=== PATIENT | female | born 1980 | race Caucasian/White ===

== ENCOUNTER 2019-02-04 22:01 | Emergency (ER) | payer SELFPAY ==
--- NOTE | 2019-02-04 22:27 | ED Physician Documentation ---
PD HPI ABD PAIN - Stated complaint Stated Complaint: ABD PX/VOM - Chief complaint Chief Complaint: Abd Pain - History obtained from History obtained from: Patient - History of Present Illness Timing - onset: Enter time (04:30), Today Timing - details: Gradual onset Pain level now: 4 Quality: Pain Location: RLQ Radiation: Other (no radiation) Worsened by: Moving, Other (vomiting) Associated symptoms: Nausea, Vomiting. No: Fever, Diarrhea, Constipation Similar symptoms before: Has not had sx before Recently seen: Not recently seen Review of Systems Constitutional: denies: Fever, Chills, Sweats Cardiac: reports: Reviewed and negative Respiratory: reports: Reviewed and negative GI: reports: Abdominal Pain, Nausea, Vomiting. denies: Constipation, Diarrhea : denies: Dysuria, Frequency PD PAST MEDICAL HISTORY - Past Medical History Past Medical History: Yes [employer]: Ovarian cysts - Past Surgical History Other past surgical history: patient had surgery for right ovarian cyst when she was late teens; she does not recall whether her appendix was also removed - Present Medications Home Medications: Ambulatory Orders Medication Instructions Recorded Confirmed No Known Home Medications 02/04/19 02/04/19 - Allergies Allergies/Adverse Reactions: Allergies Allergy/AdvReac Type Severity Reaction Status Date / Time ibuprofen Allergy Rash Verified 02/04/19 22:10 metoclopramide [From Reglan] AdvReac Mild Hallucinati Verified 02/04/19 22:11 ons Iodinated Contrast- Oral and AdvReac Itching Verified 02/05/19 00:13 IV Dye PD ED PE NORMAL - Vitals Vital signs reviewed: Yes - General General: Alert and oriented X 3, No acute distress (NAD at rest, but painful distress with movement, palpation of abdomen), Well developed/nourished - HEENT HEENT: Moist mucous membranes - Cardiac Cardiac: RRR, No murmur - Respiratory Respiratory: No respiratory distress, Clear bilaterally - Abdomen Abdomen: Soft, Non distended, Other (RLQ tenderness without rebound or guarding) - Back Back: No CVA TTP Results - Vitals Vitals: Vital Signs - 24 hr 02/04/19 02/04/19 02/04/19 22:11 23:03 23:40 Temperature 36.6 C Heart Rate 114 H 106 H 112 H Respiratory 16 16 15 Rate Blood Pressure 140/94 H 121/100 H 139/56 H O2 Saturation 99 95 96 02/05/19 02/05/19 00:01 01:00 Temperature 36.5 C Heart Rate 112 H 98 Respiratory 12 16 Rate Blood Pressure 148/95 H 136/92 H O2 Saturation 99 95 Oxygen O2 Source Room air - Labs Labs: Laboratory Tests 02/04/19 02/04/19 02/04/19 22:30 22:33 22:33 WBC 8.7 RBC 4.36 Hgb 10.7 L Hct 32.9 L MCV 75.3 L MCH 24.4 L MCHC 32.5 RDW 18.7 H Plt Count 477 H MPV 7.4 L Neut # (Auto) 5.0 Lymph # (Auto) 2.8 [place] # (Auto) 0.7 Eos # (Auto) 0.1 Baso # (Auto) 0.1 Absolute Nucleated RBC 0.00 Nucleated RBC % 0.0 Sodium 138 Potassium 3.5 Chloride 98 L Carbon Dioxide 26 Anion Gap 14.0 H BUN 11 Creatinine 0.8 Estimated GFR (MDRD) 81 L Glucose 183 H Calcium 9.5 Total Bilirubin 0.2 AST 23 ALT 31 Alkaline Phosphatase 89 Total Protein 7.8 Albumin 4.1 Globulin 3.7 Albumin/Globulin Ratio 1.1 Lipase 39 Urine Color LT RED Urine Clarity HAZY Urine pH 6.5 Ur Specific [place] <=1.005 Urine Protein NEGATIVE Urine Glucose (UA) NEGATIVE Urine Ketones NEGATIVE Urine Occult Blood LARGE H Urine Nitrite NEGATIVE Urine Bilirubin NEGATIVE Urine Urobilinogen 0.2 (NORMAL) Ur Leukocyte Esterase NEGATIVE Urine RBC TNTC H Urine WBC 0-3 Ur Squamous Epith Cells RARE Squamous Urine Bacteria None Seen Ur Microscopic Review INDICATED Urine Culture Comments NOT INDICATED Urine HCG, Qual NEGATIVE - Rads (name of study) CT A/P Radiology: Prelim report reviewed, See rad report PD MEDICAL DECISION MAKING - ED course Complexity details: reviewed results, re-evaluated patient, considered differential, d/w patient Departure - Departure Disposition: 01 Home, Self Care Clinical Impression: Abdominal pain Condition: Good Instructions: ED Abdominal Pain Unkn Cause Discharge Date/Time: 02/05/19 01:00
[2019-02-04 22:41] LABS: BASOPHILS # (AUTO) 0.1 10^3/uL (0.0-0.1); BASOPHILS % (AUTO) 1.3 %; EOSINOPHILS # (AUTO) 0.1 10^3/uL (0.0-0.7); EOSINOPHILS % (AUTO) 1.1 %; HGB - HEMOGLOBIN 10.7 g/dL (12.0-16.0); LYMPHOCYTES # (AUTO) 2.8 10^3/uL (1.5-3.5); LYMPHOCYTES % (AUTO) 32.1 %; MEAN CORPUSCULAR HEMOGLOBIN 24.4 pg (27.0-31.0); MEAN CORPUSCULAR HGB CONC 32.5 g/dL (32.0-36.0); MEAN CORPUSCULAR VOLUME 75.3 fL (81.0-99.0); MEAN PLATELET VOLUME 7.4 fL (7.9-10.8); MONOCYTES # (AUTO) 0.7 10^3/uL (0.0-1.0); MONOCYTES % (AUTO) 7.6 %; NEUTROPHILS % (AUTO) 57.9 %; PLT - PLATELET COUNT 477 10^3/uL (130-450); RED BLOOD COUNT 4.36 10^6/uL (4.20-5.40); RED CELL DISTRIBUTION WIDTH 18.7 % (12.0-15.0); WHITE BLOOD COUNT 8.7 x10^3/uL (4.8-10.8)
[2019-02-04 22:42] LABS: BILIRUBIN,URINE NEGATIVE (NEGATIVE); GLUCOSE, URINE (UA) NEGATIVE (NEGATIVE); KETONES,URINE (UA) NEGATIVE (NEGATIVE); LEUKOCYTE ESTERASE, URINE NEGATIVE (NEGATIVE); NITRITE,URINE NEGATIVE (NEGATIVE); OCCULT BLOOD,URINE LARGE (NEGATIVE); PH,URINE 6.5 PH (5.0-7.5); PROTEIN,URINE NEGATIVE (NEGATIVE); UROBILINOGEN,URINE 0.2 (NORMAL) E.U./dL (NORMAL)
[2019-02-04] MEDS ORDERED: ONDANSETRON 4 MG/2 ML VIAL IVP STA (22:43)
[2019-02-04] MEDS ORDERED: SODIUM CHLORIDE 0.9% 1,000 ML IV STA (22:43)
[2019-02-04] MEDS ORDERED: HYDROmorphone 1 MG/ML CARPUJECT IVP STA (22:43)
[2019-02-04 22:47] LABS: CLARITY,URINE HAZY (CLEAR); HCG UR QUAL NEGATIVE
[2019-02-04 22:51] LABS: ALBUMIN 4.1 g/dL (3.2-5.5); ALBUMIN/GLOBULIN RATIO 1.1 (1.0-2.2); BILIRUBIN,TOTAL 0.2 mg/dL (0.2-1.0); CALCIUM 9.5 mg/dL (8.5-10.3); CREATININE 0.8 mg/dL (0.4-1.0); TOTAL PROTEIN 7.8 g/dL (6.7-8.2)
[2019-02-04] MEDS ORDERED: IOPAMIDOL-300 100 ML VIAL ONE (23:01)
[2019-02-04 23:05] LABS: BACTERIA,URINE None Seen /HPF (None Seen); RBC,URINE TNTC /HPF (0-5); SQUAMOUS EPITHELIAL CELL,UR RARE Squamous (<= Few)
[2019-02-04] MEDS ORDERED: IOPAMIDOL-300 100 ML VIAL IVP ONE (23:45)
[2019-02-04] MEDS ORDERED: diphenhydrAMINE INJ 50 MG/ML VIAL IVP STA (23:52)
--- NOTE | 2019-02-04 23:59 | CT Report ---
Reason: RLQ pain Procedure Date: 02/04/2019 Accession Number: [id number] / [id number] Procedure: CT - Abdomen/Pelvis W CPT Code: FULL RESULT: EXAM: CT ABDOMEN AND PELVIS EXAM DATE: 02/04/2019 11:46 PM. CLINICAL HISTORY: RLQ pain. COMPARISONS: None. TECHNIQUE: Routine helical CT imaging was performed through the abdomen and pelvis. IV contrast: ISOVUE 300 100mL. Enteric contrast: No. Reconstructions: Coronal and sagittal. In accordance with CT protocol optimization, one or more of the following dose reduction techniques were utilized for this exam: automated exposure control, adjustment of mA and/or KV based on patient size, or use of iterative reconstructive technique. FINDINGS: Lung Bases: Unremarkable. Liver: Normal. No masses. Gallbladder/Bile Ducts: Unremarkable. Spleen: Normal. Pancreas: Normal. Adrenal Glands: Normal. Kidneys: Normal. No masses or hydronephrosis. Peritoneal Cavity/Bowel: Incidental duodenal diverticulum. No small bowel obstruction. No free air, free fluid, or abdominal adenopathy. Surgical clips adjacent to the cecum, likely from previous appendectomy. Pelvic Organs: Normal. The bladder and visualized pelvic organs are within normal limits. Vasculature: No aneurysms or other significant abnormality. Bones: No significant abnormality. Other: None. IMPRESSION: No evident etiology for patient's pain. Surgical clips adjacent to the cecum, likely from previous appendectomy. Incidental duodenal diverticulum. No bowel obstruction or perforation. [facility]
[2019-02-05] MEDS ORDERED: HYDROmorphone 1 MG/ML CARPUJECT IVP STA (00:18)
[2019-02-05] MEDS ORDERED: oxyCODONE/ACET 5/325 Prepack 4 PO STA (00:19)
[2019-02-05] MEDS ORDERED: ONDANSETRON ODT 4 MG Prepack 2 TL STA (00:27)
[2019-02-05 01:27] VITALS: BP 136/92
== END 2019-02-05 01:00 | disposition home or self-care (01) ==
LOC: ED 22:01
DX: R10.9 Unspecified abdominal pain (principal)
CPT/HCPCS: 36415; 74177; 80053; 81001; 81025; 83690; 85025; 96361; 96374; 96375; 96376; 99283; 99284; J1170; J1200; Q9967; 81003; 87086